=== PATIENT | male | born 1965 | race Caucasian/White ===

== ENCOUNTER 2020-07-13 15:52 | Emergency (ER) | payer MEDICAID, SELFPAY ==
--- NOTE | 2020-07-13 15:43 | ECG_ITS ---
APPROVED REPORT Exam: Resting ECG HR:112 bpm ECG Measurements Heart Rate 112 AXES OR 154 P 52 QRSd 102 QRS 82 QT 368 T 0 QTc 502 Conclusion Sinus tachycardia Nonspecific ST and T wave abnormality Abnormal ECG Electronically signed by : Trevor Cardozo, 07/13/2020 19:19:40
[2020-07-13 15:52] VITALS: BP 133/70; PULSE 109; RESP 16; TEMP 36.7; O2SAT 95; BMI 42.5
--- NOTE | 2020-07-13 15:58 | XR_ITS ---
PROCEDURE: XR CHEST 2V CLINICAL HISTORY: chest pain COMPARISON: No exams were available for comparison FINDINGS: The lung andres are well expanded. No definite pneumonic infiltrate is seen and there is no pleural fluid. There is borderline cardiomegaly however the pulmonary vascularity is normal. There are mild multilevel degenerate changes of the thoracic spine. IMPRESSION: Borderline cardiomegaly, no acute chest pathology noted Dictated by: Dr. Adrian Emanuel MD 07/14/2020 09:39 Dr. Adrian Emanuel MD in [place] 07/14/2020 09:39
[2020-07-13 16:03] LABS: Basophils # 0.1 K/mm3 (0-0.2); Basophils % 1.6 % (0.1-2.0); Eosinophils # 0.4 K/mm3 (0.0-0.4); Eosinophils % 4.2 % (0.1-12.0); Hematocrit 47.5 % (42.0-52.0); Hemoglobin 15.6 g/dL (14.1-18.0); Lymphocytes # 4.1 K/mm3 (0.7-4.5); Lymphocytes % 48.3 % (10-50); Mean Corpuscular HGB Conc 32.7 g/dL (31.8-35.4); Mean Corpuscular Hemoglobin 32.4 pg (27.0-31.2); Mean Corpuscular Volume 98.9 fl (80-94); Mean Platelet Volume 7.6 fl (7.4-10.4); Monocytes # 0.4 K/mm3 (0.1-1.0); Monocytes % 4.7 % (1.7-9.3); Neutrophils # 3.5 K/mm3 (1.8-7.8); Neutrophils % 41.2 % (37.0-80.0); Platelet Count 226 K/mm3 (142-424); Red Blood Count 4.81 M/mm3 (4.60-6.20); Red Cell Distribution Width 13.3 % (11.5-17.5); White Blood Count 8.6 K/mm3 (4.8-10.8)
[2020-07-13 16:04] VITALS: BP 133/70; PULSE 111; RESP 20; O2SAT 94
--- NOTE | 2020-07-13 16:05 | HMH.EDCP ---
ED Disposition Clinical Impression: Atypical chest pain, Bronchitis Disposition: Home, Self-Care Condition on Discharge: Fair Instructions: DI for Atypical Chest Pain, DI for Chronic Bronchitis Additional Instructions: Tear labs and see no increase in cardiac enzymes chest x-ray also shows no acute findings however it appears that you have bronchitis we have given you a shot of Solu-Medrol and also prescribed a prednisone Dosepak for you please follow-up with your weather clerk Prescriptions: methylPREDNISolone [Medrol 4mg tab] 4 mg PO DIRECTED #21 tab Prescription Printed Referrals: PCP,No [Primary Care Provider] - Time of Disposition: 18:10 - Critical Care Critical Care Time: No Attestation: On 07/13/20, the high probability of a clinically significant, sudden or life threatening deterioration of the following system(s) required my full and direct attention, intervention and personal management. The time I documented below is in addition to time spent performing reported procedures but includes the following listed in this critical care notation. Medical Decision Making - Medical Records Medical records reviewed: Yes: I reviewed the patient's medical records. MR Comment: Is a 54-year-old male here with a complaint of chest pain; he he states that he was watching TV and had chest pain; he does have considerable risk factors, he is a smoker, has got diabetes, he does also have high cholesterol and hypertension, has family history of heart disease; in fact he has been told by his family doctor that he probably needs to have open heart surgery; he has not ventured to do this as he has he is afraid; denies COVID-19 exposure recently as he has had 2 COVID-19 tests and they have been negative. Viewed patient's labs including CBC CMP and troponin and they are all within normal limits chest x-ray has been evaluated also shows no acute changes he is a smoker it appears he may have bronchitis; plan is to give him a shot of Solu-Medrol 125; discharge him home with Medrol Dosepak he has been advised to quit smoking and to follow his weather clerk advise - Juan Luis Inquiry Pt receiving controlled substance: No Vital Signs: 07/13/20 15:52 07/13/20 16:04 Temperature 98.1 F Temperature Source Oral Pulse Rate [Right] 109 H 111 H Respiratory Rate 16 20 Blood Pressure [Right Arm] 133/70 133/70 Blood Pressure Mean [Right Arm] 91 91 Blood Pressure Source [Right Arm] Automatic Cuff Automatic Cuff Blood Pressure Position [Right Arm] Sitting Sitting 02 Sat by Pulse Oximetry 95 94 L Oxygen Delivery Method Room Air - Lab Data Lab results reviewed: Yes: I reviewed the patient's lab results. Lab Results 07/13/20 15:53: WBC 8.6, RBC 4.81, Hgb 15.6, Hct 47.5, MCV 98.9 H, MCH 32.4 H, MCHC 32.7, RDW 13.3, Plt Count 226, MPV 7.6, Neut % (Auto) 41.2, Lymph % (Auto) 48.3, Burt % (Auto) 4.7, Eos % (Auto) 4.2, Baso % (Auto) 1.6, Neut # (Auto) 3.5, Lymph # (Auto) 4.1, Burt # (Auto) 0.4, Eos # (Auto) 0.4, Baso # (Auto) 0.1 07/13/20 15:53: Sodium 142, Potassium 3.8, Chloride 104, Carbon Dioxide 23, Anion Gap 18.8 H, BUN 15, Creatinine 0.80, Estimated Creat Clear 100, Estimated GFR 100, Est GFR ( Amer) 121, Glucose 264 H, Calcium 9.7, Troponin I 0.02 Result diagrams: 07/13/20 15:53 07/13/20 15:53 Orders (Tests/Meds): ED MEDICATIONS Discontinued Medications Generic Name Dose Route Start Last Admin Trade Name Freq PRN Reason Stop Dose Admin Aspirin 324 mg 07/13/20 15:59 07/13/20 16:03 Aspirin 81mg Chewable Tablet PO 07/13/20 16:00 324 mg ONCE ONE Administration Methylprednisolone Sodium Succinate 125 mg 07/13/20 18:04 Methylprednisolone Sod Succ 125mg Vial IV 07/13/20 18:05 ONCE ONE ORDERS Category Date Time Status XR chest 2V Stat Exams 07/13/20 15:58 Taken Troponin I Q3H Lab 07/13/20 19:00 Ordered Troponin I Q3H Lab 07/13/20 22:00 Ordered - Radiology Data #1 Imag
[2020-07-13 16:20] LABS: Chloride 104 mmol/L (98-107); Potassium 3.8 mmoL/L (3.5-5.1); Sodium 142 mmol/L (136-145)
[2020-07-13 16:23] LABS: Anion Gap 18.8 mEq/L (5-15); Blood Urea Nitrogen 15 mg/dl (9-20); Calcium 9.7 mg/dl (8.4-10.2); Carbon Dioxide 23 mmol/L (22.0-30.0); Creatinine Clearance Estimated 100 mL/min (50-200); Estimated Glomerular Filt Rate 100 ml/min (>60); GFR (African American) 121 ML/MIN (>60); Glucose 264 mg/dl (74-100)
[2020-07-13 16:35] LABS: Troponin I 0.02 ng/ml (0.00-0.034)
--- NOTE | 2020-07-13 18:00 | PC.NURSE ---
Pt came out of room asking to leave, saying he had been here for hours, told pt he had been here for 2 hrs. went into see pt at this time
[2020-07-13 18:22] VITALS: BP 144/70; PULSE 78; RESP 16; TEMP 36.9; O2SAT 98
== END 2020-07-13 18:23 | disposition home or self-care (01) ==
PROVIDERS: Emergency Provider Emergency Medicine
DX: J20.9 Acute bronchitis, unspecified (principal); E11.65 Type 2 diabetes mellitus with hyperglycemia; I10 Essential (primary) hypertension; E78.5 Hyperlipidemia, unspecified; F17.210 Nicotine dependence, cigarettes, uncomplicated
CPT/HCPCS: 71046; 80048; 84484; 85025; 93005; 99283

== ENCOUNTER 2020-12-08 18:42 | Emergency (ER) | payer MEDICAID, SELFPAY ==
[2020-12-08 18:43] VITALS: BP 112/86; PULSE 108; RESP 26; TEMP 37; O2SAT 91; BMI 36.5
--- NOTE | 2020-12-08 18:47 | XR_ITS ---
PROCEDURE INFORMATION: Exam: XR Chest Exam date and time: 12/08/2020 6:47 PM Age: 55 years old Clinical indication: Shortness of breath; Patient HX: SOA, smoker; Additional info: SOB TECHNIQUE: Imaging protocol: XR of the chest. Views: 1 view. COMPARISON: CR XR CHEST 2V 07/13/2020 4:03 PM FINDINGS: Lungs: Stable diffuse increased interstitial markings in right lung granuloma. No new pulmonary processes are seen. Pleural spaces: Unremarkable. No pleural effusion. No pneumothorax. Heart/Mediastinum: The heart size is mildly enlarged but stable. Vasculature: Mild aortic tortuosity. Bones/joints: Stable degenerative osseous changes. IMPRESSION: Stable diffuse increased interstitial markings in right lung granuloma. No new pulmonary processes are seen.
--- NOTE | 2020-12-08 18:48 | HMH.EDGENADL ---
ED Disposition Clinical Impression: Acute respiratory failure with hypoxia, NSTEMI (non-ST elevated myocardial infarction) Acute alcohol intoxication Qualifiers: Complication of substance-induced condition: with unspecified complication Qualified Code(s): F10.929 - Alcohol use, unspecified with intoxication, unspecified Disposition: Still a Patient Condition on Discharge: Fair Referrals: Provider,Referral, [Primary Care Provider] - - Critical Care Critical Care Time: No Attestation: On , the high probability of a clinically significant, sudden or life threatening deterioration of the following system(s) required my full and direct attention, intervention and personal management. The time I documented below is in addition to time spent performing reported procedures but includes the following listed in this critical care notation. Medical Decision Making - Medical Records Medical records reviewed: Yes: I reviewed the patient's medical records. - Juan Luis Inquiry Pt receiving controlled substance: No Vital Signs: 12/08/20 18:43 Temperature 98.6 F Temperature Source Oral Pulse Rate [Left Radial] 108 H Respiratory Rate 26 H Blood Pressure [Right Arm] 112/86 Blood Pressure Mean [Right Arm] 94 Blood Pressure Source [Right Arm] Automatic Cuff Blood Pressure Position [Right Arm] Sitting 02 Sat by Pulse Oximetry 91 L Oxygen Delivery Method Room Air - Lab Data Lab results reviewed: Yes: I reviewed the patient's lab results. Lab Results 12/08/20 19:00: WBC 11.8 H, RBC 4.79, Hgb 15.4, Hct 46.8, MCV 97.7 H, MCH 32.2 H, MCHC 32.9, RDW 13.4, Plt Count 219, MPV 7.9, Neut % (Auto) 60.6, Lymph % (Auto) 29.5, [place] % (Auto) 6.6, Eos % (Auto) 2.2, Baso % (Auto) 1.1, Neut # (Auto) 7.1, Lymph # (Auto) 3.5, [place] # (Auto) 0.8, Eos # (Auto) 0.3, Baso # (Auto) 0.1 12/08/20 19:00: Sodium 134 L, Potassium 3.4 L, Chloride 98, Carbon Dioxide 21 L, Anion Gap 18.4 H, BUN 9, Creatinine 0.90, Estimated Creat Clear 139, Estimated GFR 87, Est GFR ( Amer) 105, Glucose 413 H*, Calcium 8.5, Total Bilirubin 0.5, AST 38, ALT 34, Alkaline Phosphatase 92, Troponin I 0.18 H, NT-Pro-B Natriuret Pep 793 H, Total Protein 7.2, Albumin 4.3, Globulin 2.9, Albumin/Globulin Ratio 1.5 Result diagrams: 12/08/20 19:00 12/08/20 19:00 Orders (Tests/Meds): ED MEDICATIONS Generic Name Dose Route Start Last Admin Trade Name Freq PRN Reason Stop Dose Admin Lactated Ringer's 1,000 mls @ 999 mls/hr 12/08/20 19:30 12/08/20 19:32 Lactated Ringer's 1000 Ml Bag IV 12/08/20 20:30 999 mls/hr .Q1H1M DERRICK Administration Discontinued Medications Generic Name Dose Route Start Last Admin Trade Name Freq PRN Reason Stop Dose Admin Methylprednisolone Sodium Succinate 125 mg 12/08/20 18:53 12/08/20 18:54 Methylprednisolone Sod Succ 125mg Vial IV 12/08/20 18:54 125 mg ONCE ONE Administration ORDERS Category Date Time Status CT angio chest Stat Cat Scan 12/08/20 19:42 Ordered Full Resp Panel w/COVID ([facility]) Routine Lab 12/08/20 19:34 Ordered - ECG Data Tracing #1 Sinus tachycardia, 101 bpm, slight T wave abnormality in V1 with T wave inversions V1 through V6. ECG initial impression date: 12/08/20 ECG initial impression time: 19:40 Medical Decision Narrative: 55yo evaluated for shortness of breath. Patient is in mild respiratory distress requiring 2 L supplemental O2 at this time. He has no history of requiring supplemental O2. CBC, CMP, chest x-ray, EKG, troponin are pending. Physical exam is largely unremarkable except for a junky cough and a somnolent patient secondary to acute alcohol intoxication. Metabolic panel is largely unremarkable. CBC is largely unremarkable and metabolic panel demonstrates a glucose of over 400 and an anion gap of over 18. Patient is receiving IV fluids at this time. Will obtain a urinalysis to assess for ketones and VBG to evaluate pH. If the patient is in DKA, it is mild at this ti
[2020-12-08 19:00] VITALS: BP 117/64; PULSE 102; RESP 26; O2SAT 90
[2020-12-08 19:10] LABS: Basophils # 0.1 K/mm3 (0-0.2); Basophils % 1.1 % (0.1-2.0); Eosinophils # 0.3 K/mm3 (0.0-0.4); Eosinophils % 2.2 % (0.1-12.0); Hematocrit 46.8 % (42.0-52.0); Hemoglobin 15.4 g/dL (14.1-18.0); Lymphocytes # 3.5 K/mm3 (0.7-4.5); Lymphocytes % 29.5 % (10-50); Mean Corpuscular HGB Conc 32.9 g/dL (31.8-35.4); Mean Corpuscular Hemoglobin 32.2 pg (27.0-31.2); Mean Corpuscular Volume 97.7 fl (80-94); Mean Platelet Volume 7.9 fl (7.4-10.4); Monocytes # 0.8 K/mm3 (0.1-1.0); Monocytes % 6.6 % (1.7-9.3); Neutrophils # 7.1 K/mm3 (1.8-7.8); Neutrophils % 60.6 % (37.0-80.0); Platelet Count 219 K/mm3 (142-424); Red Blood Count 4.79 M/mm3 (4.60-6.20); Red Cell Distribution Width 13.4 % (11.5-17.5); White Blood Count 11.8 K/mm3 (4.8-10.8)
[2020-12-08 19:16] LABS: Alanine Aminotransferase 34 U/L (12-78); Albumin Level 4.3 g/dl (3.5-5.0); Albumin/Globulin Ratio 1.5 (1.1-1.8); Alkaline Phosphatase 92 U/L (38-126); Anion Gap 18.4 mEq/L (5-15); Aspartate Amino Transferase 38 U/L (17-59); Bilirubin,Total 0.5 mg/dl (0.2-1.3); Blood Urea Nitrogen 9 mg/dl (9-20); Calcium 8.5 mg/dl (8.4-10.2); Carbon Dioxide 21 mmol/L (22.0-30.0); Chloride 98 mmol/L (98-107); Creatinine Clearance Estimated 139 mL/min (50-200); Estimated Glomerular Filt Rate 87 ml/min (>60); GFR (African American) 105 ML/MIN (>60); Globulin 2.9 g/dL (1.3-3.2); Potassium 3.4 mmoL/L (3.5-5.1); Sodium 134 mmol/L (136-145); Total Protein,Serum 7.2 g/dl (6.3-8.2)
[2020-12-08 19:25] LABS: Glucose 413 mg/dl (74-100)
[2020-12-08 19:28] LABS: NT Pro Brain Natriuretic Pep. 793 pg/mL (0-125); Troponin I 0.18 ng/ml (0.00-0.034)
[2020-12-08 19:30] VITALS: BP 117/63; PULSE 100; RESP 26; O2SAT 91
--- NOTE | 2020-12-08 19:36 | ECG_ITS ---
APPROVED REPORT Exam: Resting ECG HR:101 bpm ECG Measurements Heart Rate 101 AXES VT 156 P 57 QRSd 106 QRS 85 QT 380 T 139 QTc 492 Conclusion Sinus tachycardia Possible Left atrial enlargement T wave abnormality, consider anterolateral ischemia Abnormal ECG Electronically signed by : Trevor Cardozo, 12/09/2020 07:20:40
--- NOTE | 2020-12-08 19:42 | CT_ITS ---
PROCEDURE INFORMATION: Exam: CTA Chest With Contrast Exam date and time: 12/08/2020 7:42 PM Age: 55 years old Clinical indication: Shortness of breath; Patient HX: SOA, elevated troponin 0.18; Additional info: SOB, elevated trop TECHNIQUE: Imaging protocol: Computed tomographic angiography of the chest with contrast. 3D rendering (Not supervised by radiologist): MIP and/or 3D reconstructed images were created by the technologist. Radiation optimization: All CT scans at this facility use at least one of these dose optimization techniques: automated exposure control; mA and/or kV adjustment per patient size (includes targeted exams where dose is matched to clinical indication); or iterative reconstruction. Contrast material: ISOVUE 370; Contrast volume: 70 ml; Contrast route: INTRAVENOUS (IV); COMPARISON: CR XR CHEST PORTABLE 12/08/2020 6:54 PM FINDINGS: Pulmonary arteries: Normal. No pulmonary emboli. Aorta: Unremarkable. No aortic aneurysm. No aortic dissection. Lungs: Minimal bilateral lower lobe probable dependent atelectasis is seen. Several calcified granuloma are demonstrated. These are less than 4 mm in size. No focal consolidation or infiltration is seen. Pleural spaces: Unremarkable. No pneumothorax. No pleural effusion. Heart: Significant coronary artery calcifications are seen. Lymph nodes: Unremarkable. No enlarged lymph nodes. Liver: Hepatic steatosis. Bones/joints: Degenerative osseous changes are demonstrated. Soft tissues: Unremarkable. IMPRESSION: 1. Significant coronary artery calcifications are seen. 2. No gross evidence of pulmonary embolus. No evidence of acute aortic pathology. No evidence of a focal pulmonary process except for old granulomatous disease and probable dependent atelectasis.
[2020-12-08 19:44] LABS: Adenovirus,PCR Not Detected (NotDetected); Bordetella Pertussis Not Detected (NotDetected); Chlamydophila Pneumoniae, PCR Not Detected (NotDetected); Coronavirus 19, PCR Not Detected (NotDetected); Coronavirus 229E Not Detected (NotDetected); Coronavirus NL63 Not Detected (NotDetected); Coronavirus OC43 Not Detected (NotDetected); Coronovirus HKU1,PCR Not Detected (NotDetected); Human Metapneumovirus Not Detected (NotDetected); Influenza A, PCR Not Detected (NotDetected); Influenza AH1, 2009 Not Detected (NotDetected); Influenza AH1, PCR Not Detected (NotDetected); Influenza AH3,PCR Not Detected (NotDetected); Influenza B, PCR Not Detected (NotDetected); Mycoplasma Pneumoniae, PCR Not Detected (NotDetected); Parainfluenza 1, PCR Not Detected (NotDetected); Parainfluenza 2, PCR Not Detected (NotDetected); Parainfluenza 3, PCR Not Detected (NotDetected); Parainfluenza 4, PCR Not Detected (NotDetected); Respiratory Syncytial Virus Not Detected (NotDetected)
[2020-12-08 20:09] LABS: Acetone, Serum (Rapid) None Detected (None Detect)
[2020-12-08 20:33] VITALS: BP 128/70; PULSE 110; RESP 17; O2SAT 98
--- NOTE | 2020-12-08 20:48 | PC.NURSE ---
Pt refuses to stay, he states I want to go home and ill take my medication The dangers of leaving with out full examination was explained to pt and he states he is going to leave. Pt's IV was DC'd and he signed an AMA paper and left with his girlfriend to drive him home.
[2020-12-08 20:51] VITALS: BP 128/70; PULSE 96; RESP 20; TEMP 37; O2SAT 98
[2020-12-08 21:03] LABS: Rhinovirus/Enterovirus Detected (NotDetected)
== END 2020-12-08 20:53 | disposition still patient (30) ==
PROVIDERS: Family Medicine; Emergency Provider Emergency Medicine
DX: J96.01 Acute respiratory failure with hypoxia (principal); I21.4 Non-ST elevation (NSTEMI) myocardial infarction; F10.929 Alcohol use, unspecified with intoxication, unspecified; F17.210 Nicotine dependence, cigarettes, uncomplicated; J44.9 Chronic obstructive pulmonary disease, unspecified; E11.9 Type 2 diabetes mellitus without complications; Z79.899 Other long term (current) drug therapy
CPT/HCPCS: 71045; 71275; 80053; 82009; 83880; 84484; 85025; 87581; 87633; 87798; 93005; 96365; 96375; 99283; Q9967

== ENCOUNTER 2020-12-17 19:38 | Observation (INO) | payer MEDICAID, SELFPAY ==
[2020-12-17 19:52] VITALS: BMI 37.8
[2020-12-17 19:53] VITALS: BP 149/79; PULSE 101; RESP 18; TEMP 36.7; O2SAT 96; BMI 37.8
[2020-12-17 20:11] VITALS: BP 165/94; PULSE 93; RESP 16; TEMP 36.9; O2SAT 97; BMI 38.7
--- NOTE | 2020-12-17 20:16 | ECG_ITS ---
APPROVED REPORT Exam: Resting ECG HR:98 bpm ECG Measurements Heart Rate 98 AXES MA 150 P 57 QRSd 98 QRS 77 QT 392 T 90 QTc 500 Conclusion Normal sinus rhythm Nonspecific ST and T wave abnormality Prolonged QT Abnormal ECG Electronically signed by : Trevor Cardozo, 12/19/2020 22:04:38
--- NOTE | 2020-12-17 20:16 | XR_ITS ---
PROCEDURE INFORMATION: Exam: XR Chest Exam date and time: 12/17/2020 8:16 PM Age: 55 years old Clinical indication: Shortness of breath; Patient HX: SOA, smoker TECHNIQUE: Imaging protocol: XR of the chest. Views: 2 views. COMPARISON: CR XR CHEST PORTABLE 12/08/2020 6:54 PM FINDINGS: Lungs: A few small calcified granulomas are incidentally noted. Pleural spaces: No pleural effusion or pneumothorax. There is mild pleural thickening on the right unchanged from the prior exam. Heart/Mediastinum: Mild cardiomegaly with mild perihilar interstitial infiltrates. Bones/joints: The bones are intact. IMPRESSION: 1. Mild cardiomegaly and perihilar interstitial infiltrates concerning for interstitial edema or pneumonitis. 2. Mild pleural thickening on the right unchanged from the prior exam.
[2020-12-17 20:25] LABS: Adenovirus,PCR Not Detected (NotDetected); Bordetella Pertussis Not Detected (NotDetected); Chlamydophila Pneumoniae, PCR Not Detected (NotDetected); Coronavirus 19, PCR Not Detected (NotDetected); Coronavirus 229E Not Detected (NotDetected); Coronavirus NL63 Not Detected (NotDetected); Coronavirus OC43 Not Detected (NotDetected); Coronovirus HKU1,PCR Not Detected (NotDetected); Human Metapneumovirus Not Detected (NotDetected); Influenza A, PCR Not Detected (NotDetected); Influenza AH1, 2009 Not Detected (NotDetected); Influenza AH1, PCR Not Detected (NotDetected); Influenza AH3,PCR Not Detected (NotDetected); Influenza B, PCR Not Detected (NotDetected); Mycoplasma Pneumoniae, PCR Not Detected (NotDetected); Parainfluenza 1, PCR Not Detected (NotDetected); Parainfluenza 2, PCR Not Detected (NotDetected); Parainfluenza 3, PCR Not Detected (NotDetected); Parainfluenza 4, PCR Not Detected (NotDetected); Respiratory Syncytial Virus Not Detected (NotDetected); Rhinovirus/Enterovirus Not Detected (NotDetected)
[2020-12-17 20:26] LABS: Basophils # 0.1 K/mm3 (0-0.2); Basophils % 0.9 % (0.1-2.0); Eosinophils # 0.3 K/mm3 (0.0-0.4); Eosinophils % 2.8 % (0.1-12.0); Hematocrit 46.8 % (42.0-52.0); Hemoglobin 15.8 g/dL (14.1-18.0); Lymphocytes # 2.9 K/mm3 (0.7-4.5); Lymphocytes % 24.1 % (10-50); Mean Corpuscular HGB Conc 33.7 g/dL (31.8-35.4); Mean Corpuscular Hemoglobin 32.9 pg (27.0-31.2); Mean Corpuscular Volume 97.7 fl (80-94); Mean Platelet Volume 8.4 fl (7.4-10.4); Monocytes # 0.8 K/mm3 (0.1-1.0); Monocytes % 6.9 % (1.7-9.3); Neutrophils # 7.9 K/mm3 (1.8-7.8); Neutrophils % 65.3 % (37.0-80.0); Platelet Count 177 K/mm3 (142-424); Red Blood Count 4.79 M/mm3 (4.60-6.20); Red Cell Distribution Width 13.5 % (11.5-17.5)
[2020-12-17 20:36] LABS: Alanine Aminotransferase 56 U/L (12-78); Albumin Level 4.4 g/dl (3.5-5.0); Alkaline Phosphatase 109 U/L (38-126); Anion Gap 13.2 mEq/L (5-15); Aspartate Amino Transferase 42 U/L (17-59); Bilirubin,Direct 0.4 mg/dl (0.0-0.4); Bilirubin,Indirect 0.1 mg/dL (0.0-0.9); Bilirubin,Total 0.5 mg/dl (0.2-1.3); Bilirubin,Unconjugated 0.2 mg/dL (0.0-1.1); Blood Urea Nitrogen 15 mg/dl (9-20); Calcium 9.2 mg/dl (8.4-10.2); Carbon Dioxide 25 mmol/L (22.0-30.0); Chloride 97 mmol/L (98-107); Creatinine Clearance Estimated 167 mL/min (50-200); Estimated Glomerular Filt Rate 100 ml/min (>60); GFR (African American) 121 ML/MIN (>60); Potassium 4.2 mmoL/L (3.5-5.1); Sodium 131 mmol/L (136-145); Total Protein,Serum 7.5 g/dl (6.3-8.2)
--- NOTE | 2020-12-17 20:41 | HMH.EDSOB ---
ED Disposition Clinical Impression: Unstable angina pectoris, Obesity (BMI 30-39.9), Hypothyroidism (acquired), Tobacco use Diabetes mellitus Qualifiers: Diabetes mellitus type: type 2 Diabetes mellitus longterm insulin use: unspecified manager intermediate insulin use status Diabetes mellitus complication status: with other specified complication Qualified Code(s): E11.69 - Type 2 diabetes mellitus with other specified complication HTN (hypertension) Qualifiers: Hypertension type: essential hypertension Qualified Code(s): I10 - Essential (primary) hypertension Disposition: Admitted as Observation Condition on Discharge: Good - Critical Care Critical Care Time: No Attestation: On 12/17/20, the high probability of a clinically significant, sudden or life threatening deterioration of the following system(s) required my full and direct attention, intervention and personal management. The time I documented below is in addition to time spent performing reported procedures but includes the following listed in this critical care notation. Medical Decision Making - Medical Records Medical records reviewed: Yes: I reviewed the patient's medical records. - Juan Luis Inquiry Pt receiving controlled substance: No Vital Signs: 12/17/20 19:53 12/17/20 20:11 Temperature 98.1 F 98.5 F Temperature Source Oral Oral Pulse Rate [Right] 101 H 93 H Respiratory Rate 18 16 Blood Pressure [Right Arm] 149/79 H 165/94 H Blood Pressure Mean [Right Arm] 102 117 Blood Pressure Source [Right Arm] Automatic Cuff Automatic Cuff Blood Pressure Position [Right Arm] Sitting Sitting 02 Sat by Pulse Oximetry 96 97 Oxygen Delivery Method Room Air - Lab Data Lab results reviewed: Yes: I reviewed the patient's lab results. Lab Results 12/17/20 20:15: WBC 12.0 H, RBC 4.79, Hgb 15.8, Hct 46.8, MCV 97.7 H, MCH 32.9 H, MCHC 33.7, RDW 13.5, Plt Count 177, MPV 8.4, Neut % (Auto) 65.3, Lymph % (Auto) 24.1, [place] % (Auto) 6.9, Eos % (Auto) 2.8, Baso % (Auto) 0.9, Neut # (Auto) 7.9 H, Lymph # (Auto) 2.9, [place] # (Auto) 0.8, Eos # (Auto) 0.3, Baso # (Auto) 0.1 12/17/20 20:15: Sodium 131 L, Potassium 4.2, Chloride 97 L, Carbon Dioxide 25, Anion Gap 13.2, BUN 15, Creatinine 0.80, Estimated Creat Clear 167, Estimated GFR 100, Est GFR ( Amer) 121, Glucose 408 H*, Calcium 9.2, Total Bilirubin 0.5, Direct Bilirubin 0.4, Conjugated Bilirubin 0.0, Indirect Bilirubin 0.1, Unconjugated Bilirubin 0.2, AST 42, ALT 56, Alkaline Phosphatase 109, Troponin I 0.02, Total Protein 7.5, Albumin 4.4, Thyroxine (T4) 5.3 L 12/17/20 20:15: NT-Pro-B Natriuret Pep 462 H Result diagrams: 12/17/20 20:15 12/17/20 20:15 Orders (Tests/Meds): ED MEDICATIONS Generic Name Dose Route Start Last Admin Trade Name Freq PRN Reason Stop Dose Admin Sodium Chloride 1,000 mls @ 999 mls/hr 12/17/20 20:45 12/17/20 21:00 Sod Chlor 0.9% 1000ml Bag IV 12/17/20 21:45 999 mls/hr .Q1H1M DERRICK Administration Discontinued Medications Generic Name Dose Route Start Last Admin Trade Name Freq PRN Reason Stop Dose Admin Aspirin 324 mg 12/17/20 20:36 12/17/20 21:00 Aspirin 81mg Chewable Tablet PO 12/17/20 20:37 243 mg ONCE ONE Administration ORDERS Category Date Time Status XR chest 2V Stat Exams 12/17/20 20:16 Taken Basic Metabolic Panel Stat Lab 12/17/20 20:15 Results Full Resp Panel w/COVID ([facility]) Routine Lab 12/17/20 20:10 Received Liver Panel Stat Lab 12/17/20 20:15 Results T4 (Thyroxine) Stat Lab 12/17/20 20:15 Results Thyroid Stimulating Hormone Stat Lab 12/17/20 20:15 Results Troponin I Q3H Lab 12/17/20 23:30 Ordered Troponin I Q3H Lab 12/18/20 02:30 Ordered Troponin I Stat Lab 12/17/20 20:15 Results - Radiology Data #1 Image(s): Chest Image Reviewed: Yes I reviewed the patient's radiology image Preliminary Findings: Abnormal (cm) - ECG Data Tracing #1 Normal Sinus Rhythm: Yes Ischemic changes: non-specific ST-T wave changes
[2020-12-17 20:43] LABS: Glucose 408 mg/dl (74-100)
--- NOTE | 2020-12-17 20:43 | PC.NURSE ---
notified Dr. García of critical glucose
[2020-12-17 20:47] LABS: NT Pro Brain Natriuretic Pep. 462 pg/mL (0-125)
[2020-12-17 20:49] LABS: Troponin I 0.02 ng/ml (0.00-0.034)
[2020-12-17 20:54] LABS: T4 (Thyroxine) 5.3 ug/dl (5.53-11.0)
--- NOTE | 2020-12-17 21:23 | PC.NURSE ---
attempted to call report to jericho taylor; unable to take report at this time. will call back when she gets finished with current activity.
[2020-12-17 21:53] VITALS: BP 152/84; PULSE 78; RESP 16; TEMP 36.7; O2SAT 99
[2020-12-17 22:15] VITALS: BP 115/77; PULSE 93; RESP 18; TEMP 36.8; O2SAT 96; BMI 38.9
--- NOTE | 2020-12-17 22:15 | PC.WOUNDNOTE ---
pt arrived to floor via w/c from ed w/staff [id number]
[2020-12-17 22:17] VITALS: PULSE 110
[2020-12-18] VITALS (19 sets, daily range): BP systolic 106–199; BP diastolic 60–101; PULSE 75–100; RESP 15–21; TEMP 36.8–37; O2SAT 93–98; BMI 38.9; BMI 39.1
--- NOTE | 2020-12-18 | IR_ITS ---
APPROVED REPORT Patient Location: Inpatient Real Time Analyst: MISAEL Abrams RT (R) PROCEDURES Left heart catheterization Left ventriculogram Selective coronary angiogram Drug-eluting stent deployment to the proximal and mid LAD in a contiguous manner Drug-eluting stent deployment to the proximal right coronary artery INDICATION Coronary artery disease, Previous/recent non-ST elevation myocardial infarction, Informed consent was obtained prior to the procedure. COMPLICATIONS NONE Estimated Blood Loss: LESS THAN 10 ML TECHNIQUE One percent lidocaine used to anesthetize the right anterior aspect of the wrist. The right radial artery was accessed via the Seldinger technique. A 6 Turkmen sheath was placed in the right radial artery. 2.5 mg of verapamil, 800 mcg of nitroglycerin, 1mg Lidocaine and 5000 U Heparin were given through the arterial sheath. A Poppa catheter was used to perform left heart catheterization left ventriculogram and selective coronary angiogram. At the end of the diagnostic angiogram therapeutic heparin was administered and the Poppa catheter was placed in the left main artery. A Choice PT extra-support wire was placed distally and a 2.5 x 38 mm resolute Canby stent was placed in the mid LAD and deployed at 20 marva. An additional 3 mm x 18 mm resolute Vipul stent was placed proximal to this and deployed at 20 marva. JENNIFER-3 flow was present before and after the procedure. The apparatus was removed and the catheter was used to intubate the right coronary artery. A wire was placed distally and a 2.5 x 38 mm resolute Vipul stent was placed in the proximal right coronary artery at 20 marva reducing the sequential severe stenoses to 0%. JENNIFER-3 flow was present before and after the procedure. At the end of the procedure the apparatus was removed and I broke scrub and left the Whip Sawyer. Upon review of the angiogram I noticed the mid LAD stent was under deployed therefore I rescrubbed and reentered the Whip Sawyer. The Poppa catheter was placed back in the left main artery and a wire was placed distally. A 2.75 x 12 mm balloon was deployed at 24 marva which failed to open her further dilate the stenosis. A 3 mm x 12 mm noncompliant balloon was then placed in the area and deployed at 24 marva. Failing to reduce the lesion a 3.25 x 8 mm noncompliant balloon was deployed at 24 marva followed by 3.5 x 8 mm noncompliant balloon also deployed at 24 marva. A 3.75 x 8 mm noncompliant balloon then reduce the stenosis at 16 marva. After achieving excellent angiographic results the apparatus was removed the sheath was removed and hemostasis achieved using TR banding patient was transferred to the postop coronary stable condition ANGIOGRAPHIC RESULTS The left main artery Normal The left anterior descending artery Has an ostial 10% stenosis followed by a proximal concentric 70% stenosis followed by a long concentric 80% mid vessel stenosis. The circumflex artery Is a large codominant vessel and has a proximal 30% stenosis with distal 10 to 20% stenoses The right coronary artery Is a codominant vessel and has proximal sequential 70% stenosis The CAIN ventriculogram reveals Dilated ventricle with anterior apical and inferoapical hypokinesis estimate ejection fraction 40% The left ventricular end-diastolic pressure Severely elevated at 40 mmHg IMPRESSION Severe proximal to mid LAD disease as described above Successful stenting of the proximal to mid LAD severe disease reduced to 0% with 2 contiguous drug-eluting stents as described above Successful stenting of the proximal codominant right coronary severe disease reduced to 0% with 1 drug-eluting stent Dilated ventricle with reduced ejection fraction accompa
[2020-12-18 00:34] LABS: Troponin I 0.02 ng/ml (0.00-0.034)
[2020-12-18 00:48] LABS: POC Glucose,Bedside 334 (70-110)
[2020-12-18 03:00] LABS: Troponin I 0.02 ng/ml (0.00-0.034)
--- NOTE | 2020-12-18 04:58 | PC.NURSE ---
LATE ENTRY 12/17/2020 AT 2208 PT ARRIVED TO FLOOR VIA W/C FROM ED W/STAFF
[2020-12-18 06:38] LABS: POC Glucose,Bedside 256 (70-110)
[2020-12-18 06:49] LABS: Chloride 100 mmol/L (98-107); Potassium 4.2 mmoL/L (3.5-5.1); Sodium 131 mmol/L (136-145)
[2020-12-18 06:52] LABS: Anion Gap 12.2 mEq/L (5-15); Blood Urea Nitrogen 16 mg/dl (9-20); Calcium 8.9 mg/dl (8.4-10.2); Carbon Dioxide 23 mmol/L (22.0-30.0); Cholesterol 224 mg/dl (140-200); Creatinine Clearance Estimated 224 mL/min (50-200); Estimated Glomerular Filt Rate 139 ml/min (>60); GFR (African American) 168 ML/MIN (>60); Glucose 272 mg/dl (74-100)
[2020-12-18 06:53] LABS: HDL Cholesterol 32 mg/dl (40-60)
[2020-12-18 07:03] LABS: Direct LDL Cholesterol 99.29 mg/dL (100-129)
--- NOTE | 2020-12-18 07:09 | P.CONPHA_ITS ---
[facility] Pharmacy VTE Monitoring - Patient Demographics Admission date: 12/17/20 Report Date: 12/18/20 Time: 07:09 Allergies/Adverse Reactions: Patient Allergies No Known Allergies Allergy (Verified 12/15/20 14:46) Height: 1.73 m Weight: 116.573 kg Patient Problems: Current Active Problems Unstable angina pectoris (Acute) Obesity (BMI 30-39.9) (Acute) Diabetes mellitus (Acute) HTN (hypertension) (Acute) Hypothyroidism (acquired) (Acute) Tobacco use (Acute) - VTE Risk Labs: VTE Related Lab Results Hgb 15.8 g/dL (14.1-18.0) 12/17/20 20:15 Hct 46.8 % (42.0-52.0) 12/17/20 20:15 Plt Count 177 K/mm3 (142-424) 12/17/20 20:15 BUN 15 mg/dl (9-20) 12/17/20 20:15 Creatinine 0.80 mg/dl (0.66-1.25) 12/17/20 20:15 Estimated Creat Clear 167 mL/min (50-200) 12/17/20 20:15 - Prophylaxis VTE Prophylaxis Ordered?: Yes Types of VTE Prophylaxis: TEDS Knee High Location of Applied Device: Bilateral Lower Extremeties
[2020-12-18 07:15] LABS: INR 0.88 (0.9-1.1); Prothrombin Time 10.5 seconds (10.1-12.5)
[2020-12-18 07:17] LABS: Triglycerides 532 mg/dl (30-150)
--- NOTE | 2020-12-18 08:40 | HMH.CNCARD ---
History of Present Illness Consult date: 12/18/20 Requesting physician: Sharan García Consult reason: shortness of breath Chief complaint: SOA History of present illness: This is a 55-year-old white gentleman who presented to the emergency department with complaints of shortness of breath. The patient was recently seen here at [facility] was found to have a non-ST elevation myocardial infarction but signed himself out AMA due to work obligations. The patient had an elevated troponin at 0.18 at that time but as mentioned above did sign out AMA. The patient has represented to the emergency department with complaints of worsening shortness of breath. The patient states that her shortness of breath is severe and worse with exertion. He states that it does improve with rest but does not always completely resolved. This is the same reason that he came into the hospital previously when he was found to have a non-ST ovation myocardial infarction. The patient denies any chest pain or pressure to me. He just reports having worsening shortness of breath that continues to worsen and has been significantly worse in the last few weeks. He states that this is associated with fatigue. He states that the shortness of breath is severe at times. He does have known hypertension, hyperlipidemia and diabetes. He is a current tobacco user. He states that his father from heart disease. He denies any fever, chills, nausea, vomiting, diarrhea, PND or orthopnea. [facility] History I have reviewed the patient's past medical history: Yes Medical History: Reports:: Chronic Obstructive Pulmonary Disease (COPD), Diabetes Mellitus Type 2, Hyperlipidemia, Hypertension, Myocardial Infarction Denies:: Cancer, Diabetes Mellitus Type 1, MRSA *Have you ever received a pneumonia vaccine?: No *Have you received a flu vaccine this season?: Yes Other Surgeries: Yes: No Previous Surgery - *Social History Last grade of school completed: GED Smoking Status: Current every day smoker Tobacco Type: cigarettes # Packs/Day (cigarettes): 1 Alcohol Intake: current Alcohol Intake Frequency:: 0-2 drinks per day Substance Use Type: denies use *Occupational Status:: employed Housing: house Household Members: significant other *Travel in the last 8 weeks: None Family Hx:: Cancer, Diabetes, Heart Attack, Hyperlipidemia, Hypertension Meds Home Medications Medication Instructions Recorded Confirmed Type Amlodipine Besylate 5 mg PO DAILY 12/08/20 12/17/20 History Atorvastatin Calcium [Lipitor 80mg 80 mg PO HS 12/08/20 12/17/20 History Tab] Folic Acid [Folic Acid 1mg tablet] 1 mg PO DAILY 12/08/20 12/17/20 History Thiamine HCl [Vitamin B-1 100mg 100 mg PO DAILY 12/08/20 12/17/20 History tablet] lisinopriL [Lisinopril] 40 mg PO DAILY 12/08/20 12/17/20 History metformin 500 mg tablet See Rx Instructions .ROUTE 12/15/20 12/17/20 Rx .COMPLEX #90 tab Allergies Allergy/AdvReac Type Severity Reaction Status Date / Time No Known Allergies Allergy Verified 12/15/20 14:46 Exam Vital signs and Labs for Last 24 Hours: Temp Pulse Resp BP Pulse Ox 98.3 F 89 18 135/86 94 L 12/18/20 04:00 12/18/20 04:00 12/18/20 04:00 12/18/20 04:00 12/18/20 04:00 Laboratory Results - last 24 hr 12/17/20 20:10: Chlamy pneumoniae PCR Not detected, Adenovirus (PCR) Not detected, B. pertussis DNA (PCR) Not detected, Coronavirus OC43 (PCR) Not detected, Coronavirus HKU1 (PCR) Not detected, Coronavirus 229E (PCR) Not detected, SARS-CoV-2 (PCR) Not detected, Coronavirus NL63 (PCR) Not detected, Human Metapneumovir PCR Not detected, Influenza A (H1) PCR Not detected, Influ A (H1N1/09) PCR Not detected, Influenza A (H3) PCR Not detected, Influenza Type A (PCR) Not detected, Influenza Type B (PCR) Not detected, M. pneumoniae (PCR) Not detected, Parainfluenza 1 (PCR) Not detected, Parainfluenza 2 (PCR) Not detected, Parainfluenza 3 (PCR) Not detected, Parainfluenza 4
[2020-12-18 09:15] LABS: Basophils # 0.1 K/mm3 (0-0.2); Eosinophils # 0.3 K/mm3 (0.0-0.4); Eosinophils % 3.3 % (0.1-12.0); Hematocrit 43.8 % (42.0-52.0); Hemoglobin 14.9 g/dL (14.1-18.0); Lymphocytes # 2.6 K/mm3 (0.7-4.5); Lymphocytes % 27.8 % (10-50); Mean Corpuscular Hemoglobin 32.9 pg (27.0-31.2); Mean Corpuscular Volume 96.9 fl (80-94); Mean Platelet Volume 8.2 fl (7.4-10.4); Monocytes # 0.7 K/mm3 (0.1-1.0); Monocytes % 7.1 % (1.7-9.3); Neutrophils # 5.7 K/mm3 (1.8-7.8); Neutrophils % 60.9 % (37.0-80.0); Platelet Count 166 K/mm3 (142-424); Red Blood Count 4.52 M/mm3 (4.60-6.20); Red Cell Distribution Width 13.4 % (11.5-17.5); White Blood Count 9.4 K/mm3 (4.8-10.8)
--- NOTE | 2020-12-18 10:44 | HMH.PHAINT ---
MEDICATION RECONCILIATION COMPLETED ON PATIENT USING EXTERNAL FILL HISTORY FORM PHARMACY AND LIST FROM PCP OFFICE. -ANDREW LAMASD
[2020-12-18 12:23] LABS: POC Glucose,Bedside 255 (70-110)
[2020-12-18 15:11] LABS: CATHL Activated Clotting Time 330 SEC (74-125)
[2020-12-18 15:11] LABS: CATHL Activated Clotting Time > 400 SEC (74-125)
[2020-12-18 16:09] LABS: POC Glucose,Bedside 267 (70-110)
--- NOTE | 2020-12-18 16:15 | HMH.HPDC ---
General - General Admission date:: 12/17/20 Discharge date: 12/18/20 *Admission Date: 12/17/20 *Chief complaint: chest pain *History of present illness: 55-year-old white gentleman who presented to the emergency department with complaints of shortness of breath. The patient was recently seen here at [facility] was found to have a non-ST elevation myocardial infarction but signed himself out AMA due to work obligations. The patient had an elevated troponin at 0.18 at that time but as mentioned above did sign out AMA. The patient has represented to the emergency department with complaints of worsening shortness of breath. The patient states that her shortness of breath is severe and worse with exertion. He states that it does improve with rest but does not always completely resolved. This is the same reason that he came into the hospital previously when he was found to have a non-ST ovation myocardial infarction. The patient denies any chest pain or pressure to me. He just reports having worsening shortness of breath that continues to worsen and has been significantly worse in the last few weeks. He states that this is associated with fatigue. He states that the shortness of breath is severe at times. He does have known hypertension, hyperlipidemia and diabetes. He is a current tobacco user. He states that his father from heart disease. He denies any fever, chills, nausea, vomiting, diarrhea, PND or orthopnea.- per cardiology [facility] History I have reviewed the patient's past medical history: Yes Medical History: Reports:: Chronic Obstructive Pulmonary Disease (COPD), Diabetes Mellitus Type 2, Hyperlipidemia, Hypertension, Myocardial Infarction Denies:: Cancer, Diabetes Mellitus Type 1, MRSA *Have you ever received a pneumonia vaccine?: No *Have you received a flu vaccine this season?: Yes Other Surgeries: Yes: No Previous Surgery - *Social History Last grade of school completed: GED Smoking Status: Current every day smoker Tobacco Type: cigarettes # Packs/Day (cigarettes): 1 Alcohol Intake: current Alcohol Intake Frequency:: 0-2 drinks per day Substance Use Type: denies use *Occupational Status:: employed Housing: house Household Members: significant other *Travel in the last 8 weeks: None Family Hx:: Cancer, Diabetes, Heart Attack, Hyperlipidemia, Hypertension Review of Systems - Review of Systems Review of systems:: pertinent systems reviewed and negative unless documented below - Constitutional Denies body ache(s), Denies lack of energy - Eyes Denies blurry vision - ENT Denies nasal trauma - *Cardiovascular Reports chest pain, Reports chest pain at rest, Reports chest pain with activity, Reports shortness of breath, Reports shortness of breath with activity, Denies irregular heart rhythm - *Respiratory Reports shortness of breath, Denies chest congestion - *Gastrointestinal Denies abdominal pain - *Genitourinary Denies urinary hesitancy - *Musculoskeletal Denies muscle weakness - Integumentary/Breasts Denies change in skin color - *Neurologic Denies localized weakness, Denies headache(s), Denies seizure-like activity - Psychiatric Denies abnormal sleep pattern - Endocrine Denies increased thirst - Hematologic/Lymphatic Denies easy bleeding - Allergic/Immunologic Denies GI upset with certain foods Exam Vital signs and Labs for Last 24 Hours: Temp Pulse Resp BP Pulse Ox 98.2 F 79 17 149/99 H 98 12/18/20 08:00 12/18/20 14:25 12/18/20 14:25 12/18/20 14:25 12/18/20 14:25 Laboratory Results - last 24 hr 12/17/20 20:10: Chlamy pneumoniae PCR Not detected, Adenovirus (PCR) Not detected, B. pertussis DNA (PCR) Not detected, Coronavirus OC43 (PCR) Not detected, Coronavirus HKU1 (PCR) Not detected, Coronavirus 229E (PCR) Not detected, SARS-CoV-2 (PCR) Not detected, Coronavirus NL63 (PCR) Not detected, Human Metapneumovir PCR Not detected, Influenza A (H1)
--- NOTE | 2020-12-18 18:30 | PC.NURSE ---
Discharge paperwork complete and IV D/C'd at this time. Pt instructed to wait for a ride home, pt refused and demanded to leave. Pt was informed that he could not drive for 24 hours due to medicine he received today. Pt also informed that police would be notified if he drove himself. Pt insisted on driving himself home. Accompanied pt to his car and notified [employer].
--- NOTE | 2020-12-18 18:45 | PC.NURSE ---
Patient demanding to leave, patient Chela Kwon accompanied to [place]. Patient has been advised that he needed a ride, related to previous medication given. Once patient was in parking lot, he got into his car and drove off. [facility] dispatch notified.
--- NOTE | 2020-12-19 08:24 | HMH.PHACLD ---
Dusty Blackman has received discharge medication counseling on the following medications: PATIENT DISCHARGED AFTER HOURS FROM 2ND FLOOR. MD STARTED PATIENT ON BISOPROLOL 5 MG DAILY, ASPIRIN EC 81 MG DAILY, AND BRILINTA 90 MG BID. PATIENT WAS ALREADY TAKING LISINOPRIL 40 MG DAILY AND ATORVASTATIN 80 MG HS.
== END 2020-12-18 18:35 | disposition home or self-care (01) ==
LOC: UTC 19:58 → ER 20:05 → 2ND 21:21
PROVIDERS: Internal Medicine; Admitting Provider Emergency Medicine; Emergency Provider Emergency Medicine; PCP Emergency Medicine; Visit Provider Emergency Medicine
DX: I21.4 Non-ST elevation (NSTEMI) myocardial infarction (principal); J44.9 Chronic obstructive pulmonary disease, unspecified; F17.210 Nicotine dependence, cigarettes, uncomplicated; E11.9 Type 2 diabetes mellitus without complications; Z79.84 Long term (current) use of oral hypoglycemic drugs; I10 Essential (primary) hypertension; E03.9 Hypothyroidism, unspecified; I25.118 Atherosclerotic heart disease of native coronary artery with other forms of angina pectoris; Z79.899 Other long term (current) drug therapy
CPT/HCPCS: 36415; 71046; 80048; 80061; 80076; 82962; 83735; 83880; 84436; 84443; 84484; 85025; 85347; 85610; 87581; 87633; 87798; 92928; 93005; 93306; 93458; 96365; 99152; 99153; 99284; C1725; C1760; C1769; C1876; C9600; G0378; J1644; Q9967

== ENCOUNTER → 2020-12-25 09:52 | Outpatient (CLI) | payer MEDICAID, SELFPAY ==
[2020-12-25 10:20] LABS: Basophils # 0.1 K/mm3 (0-0.2); Basophils % 1.3 % (0.1-2.0); Eosinophils # 0.3 K/mm3 (0.0-0.4); Eosinophils % 2.8 % (0.1-12.0); Hematocrit 47.8 % (42.0-52.0); Hemoglobin 16.7 g/dL (14.1-18.0); Lymphocytes # 2.4 K/mm3 (0.7-4.5); Lymphocytes % 24.9 % (10-50); Mean Corpuscular Hemoglobin 33.6 pg (27.0-31.2); Mean Corpuscular Volume 95.9 fl (80-94); Mean Platelet Volume 8.3 fl (7.4-10.4); Monocytes # 0.7 K/mm3 (0.1-1.0); Monocytes % 6.8 % (1.7-9.3); Neutrophils # 6.3 K/mm3 (1.8-7.8); Neutrophils % 64.2 % (37.0-80.0); Platelet Count 223 K/mm3 (142-424); Red Blood Count 4.98 M/mm3 (4.60-6.20); White Blood Count 9.8 K/mm3 (4.8-10.8)
[2020-12-25 12:06] LABS: Chloride 92 mmol/L (98-107); Sodium 127 mmol/L (136-145)
[2020-12-25 12:07] LABS: Potassium 5.1 mmoL/L (3.5-5.1)
[2020-12-25 12:09] LABS: Alanine Aminotransferase 37 U/L (12-78); Albumin Level 4.9 g/dl (3.5-5.0); Albumin/Globulin Ratio 1.5 (1.1-1.8); Alkaline Phosphatase 130 U/L (38-126); Anion Gap 18.1 mEq/L (5-15); Aspartate Amino Transferase 30 U/L (17-59); Bilirubin,Total 0.9 mg/dl (0.2-1.3); Blood Urea Nitrogen 25 mg/dl (9-20); Calcium 10.1 mg/dl (8.4-10.2); Carbon Dioxide 22 mmol/L (22.0-30.0); Estimated Glomerular Filt Rate 69 ml/min (>60); GFR (African American) 83 ML/MIN (>60); Globulin 3.2 g/dL (1.3-3.2); Total Protein,Serum 8.1 g/dl (6.3-8.2)
[2020-12-25 13:32] LABS: Glucose 409 mg/dl (74-100)
== END ==
PROVIDERS: Visit Provider Emergency Medicine
DX: E11.9 Type 2 diabetes mellitus without complications (principal); Z79.84 Long term (current) use of oral hypoglycemic drugs
CPT/HCPCS: 36415; 80053; 85025

== ENCOUNTER 2020-12-27 14:57 | Outpatient (RCR) | payer MEDICAID, SELFPAY | END 2021-02-26 10:45 | disposition home or self-care (01) | LOC: PT 14:57 | PROVIDERS: Visit Provider Internal Medicine | DX: I25.10 Atherosclerotic heart disease of native coronary artery without angina pectoris (principal); Z95.5 Presence of coronary angioplasty implant and graft ==

== ENCOUNTER 2020-12-27 21:56 | Observation (INO) | payer MEDICAID, SELFPAY ==
--- NOTE | 2020-12-27 21:50 | ECG_ITS ---
APPROVED REPORT Exam: Resting ECG HR:94 bpm ECG Measurements Heart Rate 94 AXES MT 150 P 62 QRSd 100 QRS 86 QT 378 T 75 QTc 472 Conclusion Normal sinus rhythm Normal ECG Electronically signed by : Trevor Cardozo, 12/28/2020 06:56:18
[2020-12-27 21:55] VITALS: BP 97/53; PULSE 96; RESP 24; TEMP 36.6; O2SAT 97; BMI 38.6
[2020-12-27 21:56] VITALS: BMI 38.6
--- NOTE | 2020-12-27 21:57 | XR_ITS ---
PROCEDURE INFORMATION: Exam: XR Chest Exam date and time: 12/27/2020 9:57 PM Age: 55 years old Clinical indication: Shortness of breath and wheezing; Patient HX: SOA. Smoker; Additional info: SOB TECHNIQUE: Imaging protocol: XR of the chest. Views: 1 view. COMPARISON: CR XR CHEST 2V 12/17/2020 8:50 PM FINDINGS: Lungs: Interstitial haziness concerning for interstitial pneumonia. These findings are most pronounced in the right lower lobe. No consolidation. Pleural spaces: Unremarkable. No pleural effusion. No pneumothorax. Heart/Mediastinum: Unremarkable. No cardiomegaly. Bones/joints: Unremarkable. IMPRESSION: Interstitial pneumonia most pronounced in the right lower lobe.
[2020-12-27 22:03] LABS: ABG Base Excess -6.7 mmol/L (-2.4-2.3); ABG HCO3 19.5 mmhg (22.0-26.0); ABG Oxygen Saturation 94 % (90-100); ABG PH 7.32 mmol/L (7.35-7.45); ABG PO2 72.2 mmhg (80-100); ABG TCO2 20.7 mmhg (23-27)
[2020-12-27 22:06] VITALS: BP 98/58; PULSE 93; O2SAT 93
[2020-12-27 22:17] LABS: Basophils # 0.2 K/mm3 (0-0.2); Basophils % 1.7 % (0.1-2.0); Eosinophils # 0.3 K/mm3 (0.0-0.4); Eosinophils % 2.2 % (0.1-12.0); Hemoglobin 16.3 g/dL (14.1-18.0); Lymphocytes # 3.4 K/mm3 (0.7-4.5); Lymphocytes % 25.3 % (10-50); Mean Corpuscular HGB Conc 34.8 g/dL (31.8-35.4); Mean Corpuscular Hemoglobin 33.1 pg (27.0-31.2); Mean Platelet Volume 8.7 fl (7.4-10.4); Monocytes % 7.2 % (1.7-9.3); Neutrophils # 8.5 K/mm3 (1.8-7.8); Neutrophils % 63.4 % (37.0-80.0); Platelet Count 305 K/mm3 (142-424); Red Blood Count 4.94 M/mm3 (4.60-6.20); White Blood Count 13.5 K/mm3 (4.8-10.8)
[2020-12-27 22:38] LABS: Chloride 87 mmol/L (98-107); Sodium 129 mmol/L (136-145)
[2020-12-27 22:39] LABS: Potassium 5.5 mmoL/L (3.5-5.1)
[2020-12-27 22:41] LABS: Alanine Aminotransferase 37 U/L (12-78); Alkaline Phosphatase 117 U/L (38-126); Aspartate Amino Transferase 40 U/L (17-59); Bilirubin,Total 0.6 mg/dl (0.2-1.3); Blood Urea Nitrogen 34 mg/dl (9-20); Creatinine Clearance Estimated 58 mL/min (50-200); Estimated Glomerular Filt Rate 29 ml/min (>60); GFR (African American) 36 ML/MIN (>60)
[2020-12-27 22:42] LABS: Albumin Level 5.1 g/dl (3.5-5.0); Albumin/Globulin Ratio 1.5 (1.1-1.8); Anion Gap 30.5 mEq/L (5-15); Carbon Dioxide 17 mmol/L (22.0-30.0); Globulin 3.4 g/dL (1.3-3.2); Total Protein,Serum 8.5 g/dl (6.3-8.2)
[2020-12-27 22:51] LABS: C-Reactive Protein 5.1 mg/L (0-4)
[2020-12-27 22:54] LABS: Glucose 593 mg/dl (74-100)
--- NOTE | 2020-12-27 22:54 | PC.NURSE ---
notified luisa of critical glucose
[2020-12-27 22:57] LABS: NT Pro Brain Natriuretic Pep. 640 pg/mL (0-125)
[2020-12-27 22:58] LABS: Troponin I 0.02 ng/ml (0.00-0.034)
[2020-12-27 23:11] LABS: Acetone, Serum (Rapid) None Detected (None Detect)
[2020-12-27 23:20] LABS: Erythrocyte Sedimentation Rate 27 mm/hr (0-20)
[2020-12-27 23:23] LABS: Coronavirus 19, PCR Not Detected (NotDetected); Influenza A, PCR Not Detected (NotDetected); Influenza B, PCR Not Detected (NotDetected)
[2020-12-27 23:40] LABS: Ethyl Alcohol 125 mg/dl (0-10)
[2020-12-27 23:45] VITALS: BP 98/58; PULSE 90; RESP 18; O2SAT 95
--- NOTE | 2020-12-27 23:50 | HMH.EDCP ---
ED Disposition Clinical Impression: Obesity (BMI 30-39.9), Unstable angina pectoris, TANISHA (acute kidney injury), Tobacco use, Hypothyroidism (acquired) Acute alcohol intoxication Qualifiers: Complication of substance-induced condition: uncomplicated Qualified Code(s): F10.920 - Alcohol use, unspecified with intoxication, uncomplicated Diabetes mellitus Qualifiers: Diabetes mellitus type: type 2 Diabetes mellitus nursing home insulin use: unspecified nursing home insulin use status Diabetes mellitus complication status: with other specified complication Qualified Code(s): E11.69 - Type 2 diabetes mellitus with other specified complication Disposition: Admitted as Observation Condition on Discharge: Fair Referrals: Sharan García MD [Primary Care Provider] - - Critical Care Critical Care Time: No Attestation: On 12/27/20, the high probability of a clinically significant, sudden or life threatening deterioration of the following system(s) required my full and direct attention, intervention and personal management. The time I documented below is in addition to time spent performing reported procedures but includes the following listed in this critical care notation. Medical Decision Making - Medical Records Medical records reviewed: Yes: I reviewed the patient's medical records. - Juan Luis Inquiry Pt receiving controlled substance: No Vital Signs: 12/27/20 21:55 Temperature 97.8 F Temperature Source Oral Pulse Rate [Right] 96 H Respiratory Rate 24 Blood Pressure [Right Arm] 97/53 L Blood Pressure Mean [Right Arm] 67 02 Sat by Pulse Oximetry 97 Oxygen Delivery Method Room Air - Lab Data Lab results reviewed: Yes: I reviewed the patient's lab results. Lab Results 12/27/20 21:52: WBC 13.5 H D, RBC 4.94, Hgb 16.3, Hct 47.0, MCV 95.0 H, MCH 33.1 H, MCHC 34.8, RDW 13.0, Plt Count 305 D, MPV 8.7, Neut % (Auto) 63.4, Lymph % (Auto) 25.3, [place] % (Auto) 7.2, Eos % (Auto) 2.2, Baso % (Auto) 1.7, Neut # (Auto) 8.5 H, Lymph # (Auto) 3.4, [place] # (Auto) 1.0, Eos # (Auto) 0.3, Baso # (Auto) 0.2, ESR 27 H 12/27/20 21:52: Sodium 129 L, Potassium 5.5 H, Chloride 87 L, Carbon Dioxide 17 L D, Anion Gap 30.5 H, BUN 34 H D, Creatinine 2.30 H D, Estimated Creat Clear 58, Estimated GFR 29 L, Est GFR ( Amer) 36 L D, Glucose 593 H*, Calcium 10.0, Total Bilirubin 0.6, AST 40 D, ALT 37, Alkaline Phosphatase 117, Troponin I 0.02, C-Reactive Protein 5.1 H, Total Protein 8.5 H, Albumin 5.1 H, Globulin 3.4 H, Albumin/Globulin Ratio 1.5 12/27/20 21:52: NT-Pro-B Natriuret Pep 640 H 12/27/20 21:52: Plasma/Serum Alcohol 125 H 12/27/20 21:52: Acetone Level None detected 12/27/20 21:57: ABG pH 7.32 L, ABG pCO2 39.0, ABG pO2 72.2 L, ABG HCO3 19.5 L, ABG Total CO2 20.7 L, ABG O2 Saturation 94, ABG Base Excess -6.7 L 12/27/20 23:10: SARS-CoV-2 (PCR) Not detected, Influenza A Untype (PCR) Not detected, Influenza Type B (PCR) Not detected Result diagrams: 12/27/20 21:52 12/27/20 21:52 Orders (Tests/Meds): ED MEDICATIONS Generic Name Dose Route Start Last Admin Trade Name Freq PRN Reason Stop Dose Admin Sodium Chloride 1,000 mls @ 999 mls/hr 12/27/20 22:00 12/27/20 22:18 Sod Chlor 0.9% 1000ml Bag IV 12/27/20 23:00 999 mls/hr .Q1H1M DERRICK Administration Discontinued Medications Generic Name Dose Route Start Last Admin Trade Name Freq PRN Reason Stop Dose Admin Insulin Human Regular 5 unit 12/27/20 23:15 12/27/20 23:17 Insulin Human Regular 100 Units/Ml 10ml Vial IVP 12/27/20 23:16 5 unit ONCE ONE Administration Methylprednisolone Sodium Succinate 125 mg 12/27/20 22:13 12/27/20 22:17 Methylprednisolone Sod Succ 125mg Vial IV 12/27/20 22:14 125 mg ONCE ONE Administration ORDERS Category Date Time Status C-Reactive Protein Stat Lab 12/27/20 21:52 Results Comprehensive Metabolic Panel Stat Lab 12/27/20 21:52 Results Procalcitonin Stat Lab 12/27/20 21:52 Results Troponin I Q3H Lab
[2020-12-28] VITALS (8 sets, daily range): BP systolic 113–163; BP diastolic 59–95; PULSE 90–110; RESP 18–22; TEMP 36.6–37.4; O2SAT 91–95; BMI 38.0; BMI 38.1
[2020-12-28 00:01] LABS: POC Glucose,Bedside 556 (70-110)
--- NOTE | 2020-12-28 00:20 | PC.NURSE ---
PT ARRIVED TO FLOOR VIA W/C FROM ED W/STAFF AT 0016
[2020-12-28 01:30] LABS: Troponin I 0.02 ng/ml (0.00-0.034)
--- NOTE | 2020-12-28 02:16 | PC.NURSE ---
Pt arrived to floor and after coughing multiple times became nauseated and vomited. Pt was administered zofran. He has not had any additional episodes of n/v. He continues to have frequent nonproductive cough. VSS at this time. Pt on RA. Lungs are clear. No pain reported. Will continue to monitor.
[2020-12-28 03:54] LABS: Basophils # 0.1 K/mm3 (0-0.2); Basophils % 0.5 % (0.1-2.0); Eosinophils # 0.1 K/mm3 (0.0-0.4); Eosinophils % 0.9 % (0.1-12.0); Hematocrit 45.4 % (42.0-52.0); Lymphocytes # 1.2 K/mm3 (0.7-4.5); Lymphocytes % 7.6 % (10-50); Mean Corpuscular HGB Conc 35.2 g/dL (31.8-35.4); Mean Corpuscular Hemoglobin 33.7 pg (27.0-31.2); Mean Corpuscular Volume 95.6 fl (80-94); Mean Platelet Volume 8.5 fl (7.4-10.4); Monocytes # 0.2 K/mm3 (0.1-1.0); Monocytes % 1.2 % (1.7-9.3); Neutrophils # 14.1 K/mm3 (1.8-7.8); Neutrophils % 89.8 % (37.0-80.0); Platelet Count 240 K/mm3 (142-424); Red Blood Count 4.75 M/mm3 (4.60-6.20); Red Cell Distribution Width 12.9 % (11.5-17.5); White Blood Count 15.7 K/mm3 (4.8-10.8)
[2020-12-28 04:00] LABS: Anion Gap 16.8 mEq/L (5-15); Blood Urea Nitrogen 38 mg/dl (9-20); Calcium 9.1 mg/dl (8.4-10.2); Carbon Dioxide 22 mmol/L (22.0-30.0); Chloride 93 mmol/L (98-107); Creatinine Clearance Estimated 62 mL/min (50-200); Estimated Glomerular Filt Rate 33 ml/min (>60); GFR (African American) 40 ML/MIN (>60); Sodium 125 mmol/L (136-145)
[2020-12-28 04:02] LABS: MANUAL DIFFERENTIAL MANUAL DIFFERENTIAL (MANUAL DIFF)
[2020-12-28 04:03] LABS: Potassium 6.8 mmoL/L (3.5-5.1)
[2020-12-28 04:04] LABS: Glucose 609 mg/dl (74-100)
[2020-12-28 04:34] LABS: Troponin I < 0.01 ng/ml (0.00-0.034)
[2020-12-28 05:54] LABS: Lymphocytes % 6 % (10-50); Neutrophils % 94 % (42-76); Platelet Estimate Normal; Stomatocytes 1+; Total Cells Counted 100
[2020-12-28 05:58] LABS: POC Glucose,Bedside 555 (70-110)
[2020-12-28 06:49] LABS: POC Glucose,Bedside 593 (70-110)
--- NOTE | 2020-12-28 07:49 | HMH.PHAVTE ---
[facility] Pharmacy VTE Monitoring - Patient Demographics Admission date: 12/27/20 Report Date: 12/28/20 Time: 07:49 Allergies/Adverse Reactions: Patient Allergies No Known Allergies Allergy (Verified 12/26/20 14:28) Height: 1.73 m Weight: 114.078 kg Patient Problems: Current Active Problems Acute alcohol intoxication (Acute) Unstable angina pectoris (Acute) Obesity (BMI 30-39.9) (Acute) Diabetes mellitus (Acute) Hypothyroidism (acquired) (Acute) Tobacco use (Chronic) TANISHA (acute kidney injury) (Acute) - VTE Risk Labs: VTE Related Lab Results Hgb 16.0 g/dL (14.1-18.0) 12/28/20 03:40 Hct 45.4 % (42.0-52.0) 12/28/20 03:40 Plt Count 240 K/mm3 (142-424) 12/28/20 03:40 BUN 38 mg/dl (9-20) H 12/28/20 03:40 Creatinine 2.10 mg/dl (0.66-1.25) H 12/28/20 03:40 Estimated Creat Clear 62 mL/min (50-200) 12/28/20 03:40 VTE Risk Level: Low Risk - Prophylaxis VTE Prophylaxis Ordered?: Yes Types of VTE Prophylaxis: TEDS Knee High Location of Applied Device: Bilateral Lower Extremeties
--- NOTE | 2020-12-28 08:22 | PC.NURSE ---
Pt refusing to have lactic and blood cultures drawn @ this time, aware.
--- NOTE | 2020-12-28 09:14 | HMH.PHAINT ---
home medication list clarified using lists from [facility] pharmacy, [facility] Primary Care office and cardiology office.
--- NOTE | 2020-12-28 09:25 | HMH.CNCARD ---
History of Present Illness Consult date: 12/28/20 Requesting physician: Sharan García Consult reason: chest pain Chief complaint: chest pain History of present illness: This is a 55-year-old white gentleman who presented to the emergency department with complaints of chest pain. The patient states that he was having chest pain for approximately 2 hours prior to admission. The patient was having a pressure sensation in the substernal aspect of his chest. He states that this is occurring with light activity. He states that this was a moderate intensity. It was worse with exertion. He states that nothing was really helping to improve the symptoms. He states that he had the chest pain for approximately 2 hours before he came into the hospital. It was associated with shortness of breath and nausea. Of note, the patient did undergo recent stenting on December 182020. He had 2 stents placed to the proximal/mid LAD and 1 stent placed to the proximal right coronary artery. On admission the patient was found to be intoxicated with alcohol. He had an elevated renal function and a significantly elevated potassium and a low sodium most likely from his alcohol consumption. The patient states that his chest pain has now resolved. He denies any shortness of breath. He denies any fever, chills, nausea, vomiting, diarrhea, PND or orthopnea. He denies any lower extremity edema. [facility] History I have reviewed the patient's past medical history: Yes Medical History: Reports:: Atherosclerotic Heart Disease, Chronic Obstructive Pulmonary Disease (COPD), Coronary Artery Disease, Hyperlipidemia, Hypertension, Myocardial Infarction Denies:: Cancer, Diabetes Mellitus Type 1, Diabetes Mellitus Type 2, MRSA *Have you ever received a pneumonia vaccine?: No *Have you received a flu vaccine this season?: Yes Other Surgeries: Yes: No Previous Surgery, Cardiac Catheterization, Coronary Stent Amputation: No Fractures: No - *Social History Smoking Status: Current every day smoker Tobacco Type: cigarettes # Packs/Day (cigarettes): 1 Alcohol Intake: current Alcohol Intake Frequency:: a few times a week Substance Use Type: denies use *Occupational Status:: unemployed Housing: house Household Members: significant other *Travel in the last 8 weeks: None Family Hx:: Cancer, Coronary Artery Disease, Diabetes, Heart Attack, Hyperlipidemia, Hypertension, Stroke Meds Home Medications Medication Instructions Recorded Confirmed Type Atorvastatin Calcium [Lipitor 80mg 80 mg PO HS 12/08/20 12/27/20 History Tab] Folic Acid [Folic Acid 1mg tablet] 1 mg PO DAILY 12/08/20 12/27/20 History Aspirin [Aspirin 81mg EC Tab] 81 mg PO DAILY 12/27/20 12/28/20 History Furosemide [Lasix 40mg tablet] 40 mg PO DAILY 12/27/20 12/28/20 History Metformin HCl [Glucophage] 1,000 mg PO BID 12/27/20 12/28/20 History Ticagrelor [Brilinta 90mg 90 mg PO BID 12/27/20 12/28/20 History Tablet] bisoproloL fumarate [Zebeta 5mg 5 mg PO DAILY 12/27/20 12/28/20 History tablet] carvediloL [Carvedilol 12.5mg Tab] 12.5 mg PO BID 12/27/20 12/28/20 History lisinopriL [Lisinopril] 40 mg PO BID 12/27/20 12/28/20 History Nicotine [Nicotine Patch 21 mg TD DAILY 12/28/20 12/28/20 History 21mg/24hrs] Spironolactone [Spironolactone 25 mg PO DAILY 12/28/20 12/28/20 History 25mg Tablet] Allergies Allergy/AdvReac Type Severity Reaction Status Date / Time No Known Allergies Allergy Verified 12/26/20 14:28 Exam Vital signs and Labs for Last 24 Hours: Temp Pulse Resp BP Pulse Ox 98.6 F 104 H 22 158/88 H 94 L 12/28/20 07:55 12/28/20 07:55 12/28/20 07:55 12/28/20 07:55 12/28/20 07:55 Laboratory Results - last 24 hr 12/27/20 21:52: WBC 13.5 H D, RBC 4.94, Hgb 16.3, Hct 47.0, MCV 95.0 H, MCH 33.1 H, MCHC 34.8, RDW 13.0, Plt Count 305 D, MPV 8.7, Neut % (Auto) 63.4, Lymph % (Auto) 25.3, [place] % (Auto) 7.2, Eos % (Auto) 2.2, Baso % (Auto) 1.7, Neut # (Auto) 8.5 H,
[2020-12-28 09:51] LABS: Chloride 89 mmol/L (98-107); Sodium 125 mmol/L (136-145)
[2020-12-28 09:54] LABS: Anion Gap 21.5 mEq/L (5-15); Blood Urea Nitrogen 42 mg/dl (9-20); Calcium 9.1 mg/dl (8.4-10.2); Carbon Dioxide 21 mmol/L (22.0-30.0); Creatinine Clearance Estimated 69 mL/min (50-200); Estimated Glomerular Filt Rate 37 ml/min (>60); GFR (African American) 44 ML/MIN (>60)
[2020-12-28 09:59] LABS: Lactic Acid 2.7 mmol/L (0.7-2.1)
[2020-12-28 10:08] LABS: Glucose 619 mg/dl (74-100); Potassium 6.5 mmoL/L (3.5-5.1)
--- NOTE | 2020-12-28 10:20 | PC.NURSE ---
FSBS obtained, 543. Per protocol order placed for stat glucose. Pt refused blood draw, stating he just had blood drawn. Pt demonstrated appropriate use of operating a glucometer and appropriate knowledge of use, he does state that he has one at home as well. Pt educated on use flex pen and proper use, pt return demonstrated appropriate use and states that he feels comfortable going home w/ insulin to admin himself. Lab called @ 1006 w/ critical glucose result of 619 and potassium of 6.5. Rose aware of critical lab results @ 1020. States to continue w/ SS insulin (15 units), she is going to speak to Dr. Allred about potassium (no new orders @ this time). He is currently sitting on side of bed, he is anxious about going home and insists that he is leaving @ 1300 today. Other than refusing lab draws he has been cooperative and pleasant w/ staff.
[2020-12-28 12:52] LABS: Chloride 89 mmol/L (98-107); Potassium 5.6 mmoL/L (3.5-5.1); Sodium 128 mmol/L (136-145)
[2020-12-28 12:55] LABS: Blood Urea Nitrogen 44 mg/dl (9-20); Creatinine Clearance Estimated 77 mL/min (50-200); Estimated Glomerular Filt Rate 42 ml/min (>60); GFR (African American) 51 ML/MIN (>60)
[2020-12-28 12:56] LABS: Anion Gap 23.6 mEq/L (5-15); Calcium 9.1 mg/dl (8.4-10.2); Carbon Dioxide 21 mmol/L (22.0-30.0)
--- NOTE | 2020-12-28 13:00 | PC.NURSE ---
1233 - Dr. García's office notified that pt is anxious and ready to go home, pt is willing to get BMP drawn prior to going home. 1244 - Jeff called back @ this time, states that if pt wishes to leave before results he will need to sign out AMA. BMP was collected, results called to Adriana @ [id number]. She is suppose to relay results to physician to see about discharge.
[2020-12-28 13:20] LABS: Glucose 559 mg/dl (74-100)
[2020-12-28 13:32] LABS: Reflex Lactic Add Lactic Reflex
--- NOTE | 2020-12-28 13:43 | HMH.HPDC ---
General - General Admission date:: 12/28/20 Discharge date: 12/28/20 *Admission Date: 12/27/20 *Chief complaint: cp *History of present illness: 55-year-old male who presented to the emergency department with complaints of chest pain and problems breathing. The patient states that he was having chest pain for approximately 2 hours. The patient was having a pressure sensation in the substernal aspect of his chest. Pt states the pain was associated with shortness of breath and nausea. Of note, the patient did undergo recent stenting on December 182020. On admission the patient was found to be intoxicated with alcohol. He had an elevated renal function and a significantly elevated potassium and a low sodium most likely from his alcohol consumption. The patient states that his chest pain has now resolved. Pt was admitted for cardiac workup, hyperglycemia, and hyperkelemia. [facility] History I have reviewed the patient's past medical history: Yes Medical History: Reports:: Atherosclerotic Heart Disease, Chronic Obstructive Pulmonary Disease (COPD), Coronary Artery Disease, Hyperlipidemia, Hypertension, Myocardial Infarction Denies:: Cancer, Diabetes Mellitus Type 1, Diabetes Mellitus Type 2, MRSA *Have you ever received a pneumonia vaccine?: No *Have you received a flu vaccine this season?: No Other Surgeries: Yes: No Previous Surgery, Cardiac Catheterization, Coronary Stent Amputation: No Fractures: No - *Social History Smoking Status: Current every day smoker Tobacco Type: cigarettes # Packs/Day (cigarettes): 1 Alcohol Intake: current Alcohol Intake Frequency:: a few times a week Substance Use Type: denies use *Occupational Status:: unemployed Housing: house Household Members: significant other *Travel in the last 8 weeks: None Family Hx:: Cancer, Coronary Artery Disease, Diabetes, Heart Attack, Hyperlipidemia, Hypertension, Stroke Review of Systems - Review of Systems Review of systems:: pertinent systems reviewed and negative unless documented below - Constitutional Reports weakness, Denies body ache(s), Denies fatigue - Eyes Denies blurry vision - ENT Denies bleeding gums, Denies dizziness - *Cardiovascular Reports chest pain, Reports chest pain at rest, Reports chest pain with activity, Reports shortness of breath with activity - *Respiratory Reports shortness of breath, Reports shortness of breath with activity - *Gastrointestinal Denies abdominal pain - *Genitourinary Denies urinary hesitancy - *Musculoskeletal Denies loss of height - Integumentary/Breasts Denies itching, Denies stretch [place] - *Neurologic Denies headache(s), Denies seizure-like activity - Psychiatric Denies behavioral changes - Endocrine Denies excessive sweating - Hematologic/Lymphatic Denies easy bruising - Allergic/Immunologic Denies itchy eyes Exam Vital signs and Labs for Last 24 Hours: Temp Pulse Resp BP Pulse Ox 98.5 F 103 H 22 135/75 95 12/28/20 11:29 12/28/20 11:29 12/28/20 11:29 12/28/20 11:29 12/28/20 11:29 Laboratory Results - last 24 hr 12/27/20 21:52: WBC 13.5 H D, RBC 4.94, Hgb 16.3, Hct 47.0, MCV 95.0 H, MCH 33.1 H, MCHC 34.8, RDW 13.0, Plt Count 305 D, MPV 8.7, Neut % (Auto) 63.4, Lymph % (Auto) 25.3, [place] % (Auto) 7.2, Eos % (Auto) 2.2, Baso % (Auto) 1.7, Neut # (Auto) 8.5 H, Lymph # (Auto) 3.4, [place] # (Auto) 1.0, Eos # (Auto) 0.3, Baso # (Auto) 0.2, ESR 27 H 12/27/20 21:52: Sodium 129 L, Potassium 5.5 H, Chloride 87 L, Carbon Dioxide 17 L D, Anion Gap 30.5 H, BUN 34 H D, Creatinine 2.30 H D, Estimated Creat Clear 58, Estimated GFR 29 L, Est GFR ( Amer) 36 L D, Glucose 593 H*, Calcium 10.0, Total Bilirubin 0.6, AST 40 D, ALT 37, Alkaline Phosphatase 117, Troponin I 0.02, C-Reactive Protein 5.1 H, Total Protein 8.5 H, Albumin 5.1 H, Globulin 3.4 H, Albumin/Globulin Ratio 1.5, Procalcitonin 0.630 12/27/20 21:52: NT-Pro-B Natriuret Pep 640 H 12/27/20 21:52: Plasma/Serum Alcohol 1
[2020-12-28 16:39] LABS: POC Glucose,Bedside 546 (70-110)
[2020-12-29 12:23] LABS: C-Peptide 10.7 ng/mL (1.1-4.4)
== END 2020-12-28 13:18 | disposition left against medical advice (07) ==
LOC: ER 22:30 → 2ND 12-28 00:02
PROVIDERS: Family Medicine; Nurse Practitioner Family; Admitting Provider Emergency Medicine; Emergency Provider Emergency Medicine; PCP Emergency Medicine; Visit Provider Emergency Medicine
DX: I25.118 Atherosclerotic heart disease of native coronary artery with other forms of angina pectoris (principal); F17.210 Nicotine dependence, cigarettes, uncomplicated; E87.5 Hyperkalemia; E87.1 Hypo-osmolality and hyponatremia; F10.929 Alcohol use, unspecified with intoxication, unspecified; Y90.6 Blood alcohol level of 120-199 mg/100 ml; Z79.899 Other long term (current) drug therapy
CPT/HCPCS: 36415; 71045; 80048; 80053; 82009; 82803; 82962; 83605; 83735; 83880; 84145; 84484; 84681; 85007; 85025; 85651; 86140; 87040; 93005; 96365; 96375; 96376; 99284; G0378; J2405; U0003

== ENCOUNTER → 2021-03-30 14:20 | Outpatient (CLI) | payer MEDICAID, SELFPAY | PROVIDERS: PCP Neurological Surgery; Visit Provider Nurse Practitioner | DX: Z20.822 Contact with and (suspected) exposure to COVID-19 (principal) | CPT/HCPCS: C9803; U0003; U0005 ==

== ENCOUNTER 2021-05-02 10:47 | Emergency (ER) | payer MEDICAID, SELFPAY ==
[2021-05-02 10:51] VITALS: BP 145/98; PULSE 92; RESP 22; TEMP 37.1; O2SAT 95; BMI 33.3
--- NOTE | 2021-05-02 11:11 | HMH.EDUTC ---
[facility] [place] Disposition Clinical Impression: Bronchitis Sinusitis Qualifiers: Sinusitis location: unspecified location Chronicity: unspecified Qualified Code(s): J32.9 - Chronic sinusitis, unspecified Disposition: Home, Self-Care Condition on Discharge: Good Instructions: Sinusitis, DI for Sinusitis Additional Instructions: The solu medrol may cause your blood sugar to elevate over the next couple of days but then should return to normal baseline Return if needed ? Start antibiotic today. Be sure to complete entire prescription even if feeling better ? Monitor temp. Tylenol every 4 hours as needed and / or ibuprofen every 6 hours as needed ( As long as your primary care physician has told you that it ok to take both. For fever/aches/pains ER if no less than 101 despite Tylenol or Motrin ? Humidifier/vaporizer or hot steamy shower ? Inhaler every 4-6 hours as needed like we discussed. If unsure how to use it, ask pharmacist to demonstrate how. Should help open airways and improve cough, wheezing, and shortness of breath ? Mucinex during the day for your cough and cough suppressant only at night. Be sure to drink lots of water. Insurance may not cover a prescriptions for mucinex. Might be cheaper to over the counter with lots of water. Follow up IMMEDIATELY for new or worsening of symptoms OR no noticeable improvement over the next 48-72 hours. 911 immediately for any life threatening symptoms such as chest pain or difficulty breathing Prescriptions: Albuterol Sulfate [Proventil-HFA 90mcg/puff Inh] 1 - 2 puffs IH Q4HP PRN #1 each PRN Reason: Shortness Of Breath Transmission Status: Received by [facility] # Azithromycin [Z-Anjum 250mg Tab] 250 mg PO DIRECTED #6 tab Transmission Status: Received by [facility] # Referrals: Sharan García MD [Primary Care Provider] - As needed Forms: Work/School Release Time of Disposition: 11:36 Medical Decision Making - Juan Luis Inquiry Pt receiving controlled substance: No Juan Luis was queried for this patient: No Vital Signs: 05/02/21 10:51 05/02/21 11:39 Temperature 98.8 F 98.4 F Temperature Source Oral Pulse Rate 75 Pulse Rate [Left] 92 H Respiratory Rate 22 16 Blood Pressure 120/79 Blood Pressure [Right Arm] 145/98 H Blood Pressure Mean [Right Arm] 113 02 Sat by Pulse Oximetry 95 Orders (Tests/Meds): ED MEDICATIONS Discontinued Medications Generic Name Dose Route Start Last Admin Trade Name Leeanne PRN Reason Stop Dose Admin Ceftriaxone Sodium 1 gm 05/02/21 11:25 05/02/21 11:31 Ceftriaxone 1gm Vial IM 05/02/21 11:26 1 gm ONCE ONE Administration Lidocaine HCl 0 ml 05/02/21 11:25 05/02/21 11:31 Lidocaine 1% 5ml Pf Vial IM 05/02/21 11:26 2.5 ml ONCE ONE Administration Methylprednisolone Sodium Succinate 125 mg 05/02/21 11:33 05/02/21 11:39 Methylprednisolone Sod Succ 125mg Vial IM 05/02/21 11:34 125 mg ONCE ONE Administration Medical Decision Narrative: Patient states that he has taken both Solumedrol and azithromycin in the past without complications or reactions discussed cxr and patient declined [facility] [place] HPI - General Stated complaint: possible bronchitis Time Seen by Provider: 05/02/21 11:00 Mode of Arrival: Ambulatory Source of Information: Patient Limitations: No Limitations Description of Symptoms (Recalled from Triage Doc. by RN): pt thinks he may have bronchitis. pt c/o cough, runny nose and chest congestion since this am. HEENT Symptoms (Recalled from RN notes): Yes (nasal drainage) Resp Symptoms (Recalled from RN notes): Yes (cough and chest congestion) Skin Symptoms (Recalled from RN notes): No MS Symptoms (Recalled from RN notes): No Functional Status (Recalled from RN notes): na - History of Present Illness Provider Complaint: Patient states that he has been having sinus pain and pressure and feels like it has moved into his chest area States that he woke up this morning with
[2021-05-02 11:39] VITALS: BP 120/79; PULSE 75; RESP 16; TEMP 36.9
== END 2021-05-02 11:44 | disposition home or self-care (01) ==
PROVIDERS: Emergency Provider Nurse Practitioner; PCP Emergency Medicine
DX: J20.9 Acute bronchitis, unspecified (principal); J32.9 Chronic sinusitis, unspecified; I25.2 Old myocardial infarction; I25.10 Atherosclerotic heart disease of native coronary artery without angina pectoris; E78.5 Hyperlipidemia, unspecified; F17.210 Nicotine dependence, cigarettes, uncomplicated; Z79.899 Other long term (current) drug therapy
CPT/HCPCS: 96372; 99202; G0463

== ENCOUNTER → 2021-08-13 11:01 | Outpatient (CLI) | payer MEDICAID, SELFPAY ==
[2021-08-14 06:44] LABS: Covid-19 Nasal PCR Sendout Lex POSITIVE
== END ==
PROVIDERS: Visit Provider Nurse Practitioner
DX: U07.1 COVID-19 (principal)
CPT/HCPCS: C9803; U0004; U0005

== ENCOUNTER → 2021-08-22 10:19 | Outpatient (CLI) | payer MEDICAID, SELFPAY ==
[2021-08-23 09:37] LABS: Covid-19 Nasal PCR Sendout Lex NOT DETECTED
== END ==
PROVIDERS: PCP Emergency Medicine; Visit Provider Nurse Practitioner
DX: Z20.822 Contact with and (suspected) exposure to COVID-19 (principal)
CPT/HCPCS: C9803; U0004; U0005